=== PATIENT | male | born 1960 | race Hispanic/Latino ===

== ENCOUNTER 2024-02-25 08:44 | Inpatient (IN) | payer OTHER ==
[~2024-02-25] VITALS: Ht 180.3 cm; Wt 149.7 kg
[2024-02-25] VITALS (9 sets, daily range): BP systolic 133–160; BP diastolic 49–61; PULSE 66–89; RESP 16–21; TEMP 98.2–98.4; O2SAT 93–98
[2024-02-25 09:07] LABS: BASOPHILS % 0.4 % (0.0-1.0); EOSINOPHILS % 0.4 % (0.0-6.0); HEMATOCRIT 46.2 % (38.2-49.6); HEMOGLOBIN 14.3 g/dL (14.0-18.0); LYMPHOCYTES % 12.5 % (18.0-39.1); MEAN CORPUSCULAR HEMOGLOBIN 29.9 pg (28-32); MEAN CORPUSCULAR VOLUME 96.7 fL (81-99); MONOCYTES # (AUTO) 0.7 (0.2-0.8); MONOCYTES % 8.4 % (4.4-11.3); NEUTROPHILS # (AUTO) 6.4 (2.1-6.9); NEUTROPHILS % 77.7 % (38.7-80.0); PLATELET COUNT 148 x10e3/uL (140-360); RED BLOOD COUNT 4.78 x10e6/uL (4.3-5.7); RED CELL DISTRIBUTION WIDTH 14.2 % (11.7-14.4); WHITE BLOOD COUNT 8.25 x10e3/uL (4.8-10.8)
[2024-02-25] MEDS: METHYLPREDNISOLONE SOD SUCC 125 MG/2ML VIAL IV ONE (09:07)
[2024-02-25 09:29] LABS: ALBUMIN/GLOBULIN RATIO 1.1 (0.8-2.0); ANION GAP 15.8 mmol/L (8-16); BILIRUBIN,TOTAL 0.4 mg/dL (0.2-1.2); CALCIUM 9.2 mg/dL (8.4-10.2); CREATININE, SERUM 1.55 mg/dL (0.72-1.25); POTASSIUM 3.8 mmol/L (3.5-5.1); TOTAL PROTEIN 7.7 g/dL (6.5-8.1)
[2024-02-25 09:29] LABS: CORONAVIRUS COVID-19 AG NEGATIVE (NEGATIVE); INFLUENZA A AG NEGATIVE (NEGATIVE); INFLUENZA B AG NEGATIVE (NEGATIVE)
[2024-02-25] MEDS: ALBUTEROL/IPRATROPIUM 3 ML NEB NEB ONE (09:37)
[2024-02-25] MEDS ORDERED: SODIUM CHLORIDE FLUSH 10 ML SYR INJ PRN (11:15)
[2024-02-25] MEDS ORDERED: ALBUTEROL/IPRATROPIUM 3 ML NEB NEB PRN (11:15)
[2024-02-25] MEDS ORDERED: JARDIANCE25 MG PO (12:35)
[2024-02-25] MEDS ORDERED: FENOFIBRATE145 M1 PO (12:35)
[2024-02-25] MEDS ORDERED: MOUNJARO2.5 MG/0.5 SC (12:35)
[2024-02-25] MEDS ORDERED: LOSARTAN POTAS100 MG PO (12:35)
[2024-02-25] MEDS ORDERED: PIOGLITAZONE HC45 MG PO (12:35)
[2024-02-25] MEDS ORDERED: METFORMIN HCL500 M1 PO (12:35)
[2024-02-25] MEDS ORDERED: PRAVASTATIN SOD40 MG PO (12:35)
[2024-02-25] MEDS ORDERED: HYDROCHLOROTHIA25 MG PO (12:35)
[2024-02-25] MEDS ORDERED: ACETAMINOPHEN 325 MG TAB PO PRN (14:30)
[2024-02-25] MEDS ORDERED: DEXTROSE 50% SYRINGE 50 ML IV PRN (14:30)
[2024-02-25] MEDS ORDERED: ONDANSETRON HCL INJ 2MG/ML 2ML 2 MG/ML VIAL IV PRN (14:30)
[2024-02-25] MEDS ORDERED: HYDRALAZINE HCL 20 MG/ML VIAL IV PRN (14:30)
[2024-02-25] MEDS: INSULIN LISPRO 100 UNIT/1 ML 3ML VIAL SQ SCH (17:06)
[2024-02-25] MEDS: FUROSEMIDE INJ 10 MG/ML 4 ML VIAL IV ONE (17:13)
[2024-02-25 17:14] LABS: TROPONIN I 0.016 ng/mL (0-0.300)
[2024-02-25] MEDS: ENOXAPARIN SOD INJ 40 MG/0.4 ML SYR SC SCH (17:15)
[2024-02-25] MEDS: GUAIFENESIN 600 MG TAB PO SCH (17:15)
[2024-02-25] MEDS: FLUTICASONE PROPIONATE NASAL SPRAY NS SCH (18:00)
[2024-02-26] VITALS (11 sets, daily range): BP systolic 123–158; BP diastolic 51–71; PULSE 60–81; RESP 18–21; TEMP 97.2–98.2; O2SAT 91–97
[2024-02-26 06:11] LABS: BASOPHILS % 0.1 % (0.0-1.0); EOSINOPHILS % 0.1 % (0.0-6.0); HEMATOCRIT 41.7 % (38.2-49.6); LYMPHOCYTES # (AUTO) 1.1 (1.0-3.2); LYMPHOCYTES % 15.9 % (18.0-39.1); MEAN CORPUSCULAR HEMOGLOBIN 30.6 pg (28-32); MEAN CORPUSCULAR HGB CONC 33.6 g/dL (31-35); MONOCYTES # (AUTO) 0.7 (0.2-0.8); MONOCYTES % 10.5 % (4.4-11.3); NEUTROPHILS # (AUTO) 5.1 (2.1-6.9); NEUTROPHILS % 72.8 % (38.7-80.0); PLATELET COUNT 152 x10e3/uL (140-360); RED BLOOD COUNT 4.58 x10e6/uL (4.3-5.7); WHITE BLOOD COUNT 6.94 x10e3/uL (4.8-10.8)
[2024-02-26 06:42] LABS: ALBUMIN 3.6 g/dL (3.5-5.0); ANION GAP 14.5 mmol/L (8-16); BILIRUBIN,TOTAL 0.3 mg/dL (0.2-1.2); CALCIUM 9.3 mg/dL (8.4-10.2); CREATININE, SERUM 1.38 mg/dL (0.72-1.25); POTASSIUM 3.5 mmol/L (3.5-5.1); TOTAL PROTEIN 7.3 g/dL (6.5-8.1)
[2024-02-26 07:09] LABS: TROPONIN I 0.011 ng/mL (0-0.300)
[2024-02-26] MEDS: ASPIRIN 81 MG ENTERIC COATED PO SCH (09:01)
[2024-02-26] MEDS: POTASSIUM CHLORIDE 10MEQ EA PO ONE (11:10)
[2024-02-26] MEDS: ALBUTEROL/IPRATROPIUM 3 ML NEB NEB PRN (12:11)
[2024-02-26] MEDS: FUROSEMIDE INJ 10 MG/ML 4 ML VIAL IV ONE (13:17)
[2024-02-26] MEDS: AMOXICILLIN/CLAVULANATE K 875 MG TAB PO SCH (13:17)
[2024-02-26] MEDS: PREDNISONE 10 MG TAB PO ONE (18:28)
[2024-02-27] VITALS (7 sets, daily range): BP systolic 130–186; BP diastolic 53–77; PULSE 56–73; RESP 18–22; TEMP 97.1–98.6; O2SAT 62–98
[2024-02-27 05:24] LABS: BASOPHILS % 0.4 % (0.0-1.0); EOSINOPHILS % 0.6 % (0.0-6.0); HEMATOCRIT 43.3 % (38.2-49.6); HEMOGLOBIN 14.3 g/dL (14.0-18.0); LYMPHOCYTES # (AUTO) 1.8 (1.0-3.2); LYMPHOCYTES % 24.7 % (18.0-39.1); MEAN CORPUSCULAR HEMOGLOBIN 30.1 pg (28-32); MEAN CORPUSCULAR VOLUME 91.2 fL (81-99); MONOCYTES # (AUTO) 0.6 (0.2-0.8); MONOCYTES % 7.6 % (4.4-11.3); NEUTROPHILS # (AUTO) 4.8 (2.1-6.9); NEUTROPHILS % 66.1 % (38.7-80.0); PLATELET COUNT 161 x10e3/uL (140-360); RED BLOOD COUNT 4.75 x10e6/uL (4.3-5.7); RED CELL DISTRIBUTION WIDTH 13.7 % (11.7-14.4); WHITE BLOOD COUNT 7.26 x10e3/uL (4.8-10.8)
[2024-02-27 05:47] LABS: ANION GAP 15.9 mmol/L (8-16); CALCIUM 9.8 mg/dL (8.4-10.2); CREATININE, SERUM 1.42 mg/dL (0.72-1.25); MAGNESIUM 1.8 MG/DL (1.3-2.1); POTASSIUM 3.9 mmol/L (3.5-5.1)
[2024-02-27] MEDS ORDERED: ASPIRIN EC81 MG PO (16:37)
[2024-02-27] MEDS ORDERED: AMOX TR-K CLV1 EAC2 PO (16:37)
[2024-02-27] MEDS ORDERED: FLONASE ALLERG9.9 ML INH (16:37)
[2024-02-27] MEDS ORDERED: MUCINEX600 MG PO (16:37)
[2024-02-27] MEDS ORDERED: VENTOLIN HFA18 GM INH (16:39)
== END 2024-02-27 18:25 | disposition home or self-care (01) | DRG 202 ==
LOC: ER 08:49 → ERHOLD 11:06 → MED/SURG 11:55 → OBSVTOIN 02-26 17:45
PROVIDERS: ADMIT Internal Medicine; ATTEND Internal Medicine
DX: J40 Bronchitis, not specified as acute or chronic (principal); N17.9 Acute kidney failure, unspecified; Z68.42 Body mass index [BMI] 45.0-49.9, adult; E66.01 Morbid (severe) obesity due to excess calories; E11.9 Type 2 diabetes mellitus without complications; I11.9 Hypertensive heart disease without heart failure; R06.09 Other forms of dyspnea; E78.2 Mixed hyperlipidemia; Z11.52 Encounter for screening for COVID-19; Z79.82 Long term (current) use of aspirin; Z79.84 Long term (current) use of oral hypoglycemic drugs
CPT/HCPCS: 36415; 71045; 80048; 80053; 82550; 82948; 83735; 83880; 84484; 85025; 93005; 93306; 94640; 94760; 94799; 99284; G0378; J1650; J1940; J2919; J7512